=== PATIENT | male | born 1935 | race Caucasian/White ===

== ENCOUNTER 2021-01-05 20:49 | Inpatient (IN) ==
[2021-01-08] MEDS: Apixaban 5 MG TABLET PO SCH (22:24)
[2021-01-08] MEDS: *HR* Metformin 500 MG TABLET PO SCH (22:25)
[2021-01-08] MEDS: Magnesium Oxide 400 MG TABLET PO SCH (22:25)
[2021-01-09 07:47] LABS: Basophils % 0.2 %; Eosinophils % 0.3 %; Hematocrit 26.6 % (37.5-50.1); Hemoglobin 8.3 g/dL (12.9-16.9); Immature Granulocytes % 1.3 % (0-4); Lymphocytes # 0.6 K/mcL (0.6-4.6); Lymphocytes % 5.4 %; Mean Corpuscular HGB Conc 31.2 g/dL (31.6-35.5); Mean Platelet Volume 9.6 fL (9.4-12.4); Monocytes # 0.5 K/mcL (0.0-1.3); Monocytes % 4.4 %; Neutrophils # 9.8 K/mcL (1.6-8.9); Platelet Count 314 K/mcL (140-400); Red Blood Count 2.86 M/mcL (4.19-5.50); Red Cell Distribution Width 15.8 % (11.5-14.5); Segmented Neutrophils % 88.4 %
[2021-01-09 08:00] LABS: Calcium 8.2 mg/dL (8.6-10.3); Potassium 3.6 mEq/L (3.5-5.1)
[2021-01-09] MEDS ORDERED: lisinopriL 10 MG TABLET PO SCH (09:00)
[2021-01-09] MEDS: *HR* Glimepiride 2 MG TABLET PO SCH ×2 (09:53→17:29)
[2021-01-09] MEDS: Cyanocobalamin (B-12) 1,000 MCG TABLET PO SCH (09:53)
[2021-01-09] MEDS: Cholecalciferol (D-3) 1,000 UNIT (25MCG) TABLET PO SCH (09:53)
[2021-01-09] MEDS: Aspirin Enteric Coated 81 MG Tablet PO SCH (09:53)
[2021-01-09] MEDS: *HR* Metformin 500 MG TABLET PO SCH (09:54)
[2021-01-09] MEDS: Magnesium Oxide 400 MG TABLET PO SCH ×2 (09:55→20:34)
[2021-01-09] MEDS: Apixaban 5 MG TABLET PO SCH ×2 (09:55→20:34)
[2021-01-09] MEDS: Alogliptin Benzoate [Alogliptin] 12.5 MG PO SCH (09:55)
[2021-01-09] MEDS ORDERED: *HR* Dextrose 50 % in Water (Syg) 50 ML SYRINGE IVP PRN (13:52)
[2021-01-09] MEDS ORDERED: Dextrose Gel 15 GM/37.5 ML TUBE PO PRN ×2 (13:52)
[2021-01-09] MEDS ORDERED: D5% in Water 1,000 ML IVC PRN (13:52)
[2021-01-09] MEDS ORDERED: hydrALAZINE 25 MG TABLET PO PRN (13:58)
[2021-01-09] MEDS: Insulin LISPRO 300 UNITS/3 ML VIAL SUBQ SCH ×2 (17:27→22:06)
[2021-01-09] MEDS ORDERED: Naloxone 0.4 MG/ML INJ IVP ONE (20:07)
[2021-01-09] MEDS: Albumin 25% 25gram/100mL 25 GM/100 ML IV.SOLN IVPB SCH (20:34)
[2021-01-09 20:42] LABS: Hematocrit 24.9 % (37.5-50.1); Hemoglobin 7.8 g/dL (12.9-16.9)
[2021-01-10] MEDS: Albumin 25% 25gram/100mL 25 GM/100 ML IV.SOLN IVPB SCH ×2 (04:31→11:18)
[2021-01-10 07:38] LABS: Albumin 3.6 g/dL (3.5-5.7); Albumin/Globulin Ratio 1.6 (1.1-2.2); Bilirubin,Direct 0.1 mg/dL (0.0-0.2); Bilirubin,Indirect 0.2 mg/dL (0.0-1.0); Bilirubin,Total 0.3 mg/dL (0.3-1.0); Globulin 2.2 g/dL (2.4-3.5); Total Protein 5.8 g/dL (6.4-8.9)
[2021-01-10] MEDS: Aspirin Enteric Coated 81 MG Tablet PO SCH (09:16)
[2021-01-10] MEDS: Cyanocobalamin (B-12) 1,000 MCG TABLET PO SCH (09:17)
[2021-01-10] MEDS: Magnesium Oxide 400 MG TABLET PO SCH ×2 (09:17→20:49)
[2021-01-10] MEDS: Apixaban 5 MG TABLET PO SCH (09:17)
[2021-01-10] MEDS: *HR* Glimepiride 2 MG TABLET PO SCH ×2 (09:17→17:36)
[2021-01-10] MEDS: Cholecalciferol (D-3) 1,000 UNIT (25MCG) TABLET PO SCH (09:17)
[2021-01-10] MEDS: Alogliptin Benzoate [Alogliptin] 12.5 MG PO SCH (09:18)
[2021-01-10] MEDS: Insulin LISPRO 300 UNITS/3 ML VIAL SUBQ SCH ×4 (09:18→20:49)
[2021-01-10] MEDS ORDERED: 0.9 % Sodium Chloride 250 ML IVC ONE ×2 (10:00→11:12)
[2021-01-10] MEDS ORDERED: 0.9 % Sodium Chloride 1,000 ML IVC SCH (10:15)
[2021-01-10] MEDS ORDERED: 0.9 % Sodium Chloride 250 ML ONE (11:20)
[2021-01-10 15:20] LABS: Basophils % 0.2 %; Eosinophils # 0.1 K/mcL (0.0-0.6); Eosinophils % 1.1 %; Hematocrit 20.5 % (37.5-50.1); Hemoglobin 6.5 g/dL (12.9-16.9); Immature Granulocytes % 0.9 % (0-4); Lymphocytes # 0.6 K/mcL (0.6-4.6); Lymphocytes % 6.9 %; Mean Corpuscular HGB Conc 31.7 g/dL (31.6-35.5); Mean Corpuscular Hemoglobin 29.5 pg (28.0-33.3); Mean Corpuscular Volume 93.2 fL (83.0-100.0); Mean Platelet Volume 9.7 fL (9.4-12.4); Monocytes # 0.4 K/mcL (0.0-1.3); Monocytes % 5.1 %; Neutrophils # 6.9 K/mcL (1.6-8.9); Platelet Count 249 K/mcL (140-400); Red Cell Distribution Width 15.9 % (11.5-14.5); Segmented Neutrophils % 85.8 %; White Blood Count 8.1 K/mcL (4.3-11.1)
[2021-01-10] MEDS ORDERED: 0.9 % Sodium Chloride 250 ML IVC SCH (16:15)
[2021-01-10] MEDS ORDERED: Albumin 25% 25gram/100mL 25 GM/100 ML IV.SOLN IVPB ONE (20:00)
[2021-01-10 21:48] LABS: Hematocrit 20.9 % (37.5-50.1); Hemoglobin 6.7 g/dL (12.9-16.9)
[2021-01-11 07:05] LABS: Hematocrit 26.5 % (37.5-50.1); Hemoglobin 8.6 g/dL (12.9-16.9)
[2021-01-11 07:34] LABS: Calcium 8.5 mg/dL (8.6-10.3); Potassium 3.6 mEq/L (3.5-5.1)
[2021-01-11] MEDS: Magnesium Oxide 400 MG TABLET PO SCH ×2 (09:38→20:56)
[2021-01-11] MEDS: *HR* Glimepiride 2 MG TABLET PO SCH ×2 (09:38→16:36)
[2021-01-11] MEDS: Cholecalciferol (D-3) 1,000 UNIT (25MCG) TABLET PO SCH (09:38)
[2021-01-11] MEDS: Cyanocobalamin (B-12) 1,000 MCG TABLET PO SCH (09:38)
[2021-01-11] MEDS: Insulin LISPRO 300 UNITS/3 ML VIAL SUBQ SCH ×4 (09:39→20:40)
[2021-01-11] MEDS: Aspirin Enteric Coated 81 MG Tablet PO SCH (09:39)
[2021-01-11] MEDS: Alogliptin Benzoate [Alogliptin] 12.5 MG PO SCH (09:39)
[2021-01-11 11:45] LABS: Hemoglobin 8.8 g/dL (12.9-16.9)
[2021-01-11 14:31] LABS: Hematocrit 27.6 % (37.5-50.1); Hemoglobin 8.9 g/dL (12.9-16.9)
[2021-01-11 20:10] LABS: Hematocrit 28.5 % (37.5-50.1); Hemoglobin 9.1 g/dL (12.9-16.9)
[2021-01-12 02:00] LABS: Hematocrit 28.9 % (37.5-50.1); Hemoglobin 9.3 g/dL (12.9-16.9)
[2021-01-12 08:14] LABS: Hematocrit 30.2 % (37.5-50.1); Hemoglobin 9.6 g/dL (12.9-16.9)
[2021-01-12] MEDS: Insulin LISPRO 300 UNITS/3 ML VIAL SUBQ SCH ×4 (09:44→20:46)
[2021-01-12] MEDS: Aspirin Enteric Coated 81 MG Tablet PO SCH (09:53)
[2021-01-12] MEDS: Cholecalciferol (D-3) 1,000 UNIT (25MCG) TABLET PO SCH (09:54)
[2021-01-12] MEDS: Magnesium Oxide 400 MG TABLET PO SCH ×2 (09:54→20:53)
[2021-01-12] MEDS: Cyanocobalamin (B-12) 1,000 MCG TABLET PO SCH (09:55)
[2021-01-12] MEDS: *HR* Glimepiride 2 MG TABLET PO SCH ×2 (09:57→17:13)
[2021-01-12] MEDS: Alogliptin Benzoate [Alogliptin] 12.5 MG PO SCH (10:20)
[2021-01-13 08:22] LABS: Basophils % 0.5 %; Eosinophils # 0.1 K/mcL (0.0-0.6); Eosinophils % 1.9 %; Hematocrit 30.4 % (37.5-50.1); Hemoglobin 9.7 g/dL (12.9-16.9); Immature Granulocytes % 0.9 % (0-4); Lymphocytes # 0.8 K/mcL (0.6-4.6); Lymphocytes % 13.4 %; Mean Corpuscular HGB Conc 31.9 g/dL (31.6-35.5); Mean Corpuscular Hemoglobin 28.7 pg (28.0-33.3); Mean Corpuscular Volume 89.9 fL (83.0-100.0); Mean Platelet Volume 9.2 fL (9.4-12.4); Monocytes # 0.5 K/mcL (0.0-1.3); Monocytes % 7.7 %; Neutrophils # 4.4 K/mcL (1.6-8.9); Platelet Count 216 K/mcL (140-400); Red Blood Count 3.38 M/mcL (4.19-5.50); Red Cell Distribution Width 15.8 % (11.5-14.5); Segmented Neutrophils % 75.6 %; White Blood Count 5.8 K/mcL (4.3-11.1)
[2021-01-13 08:39] LABS: BUN/Creatinine Ratio 20 (6-26); Blood Urea Nitrogen 27 mg/dL (8-23); Calcium 8.8 mg/dL (8.6-10.3); Carbon Dioxide 30 mEq/L (23-29); Chloride 99 mEq/L (98-107); Glucose 145 mg/dL (70-105); Osmolality,Calculated 286 (280-300); Potassium 3.8 mEq/L (3.5-5.1); Sodium 134 mEq/L (136-145); eGFR For African Americans > 60 (> 60); eGFR For Non-African Americans 51 (> 60)
[2021-01-13] MEDS: Insulin LISPRO 300 UNITS/3 ML VIAL SUBQ SCH ×4 (09:05→21:28)
[2021-01-13] MEDS: Alogliptin Benzoate [Alogliptin] 12.5 MG PO SCH (09:06)
[2021-01-13] MEDS: Cholecalciferol (D-3) 1,000 UNIT (25MCG) TABLET PO SCH (09:13)
[2021-01-13] MEDS: Aspirin Enteric Coated 81 MG Tablet PO SCH (09:14)
[2021-01-13] MEDS: Cyanocobalamin (B-12) 1,000 MCG TABLET PO SCH (09:14)
[2021-01-13] MEDS: Magnesium Oxide 400 MG TABLET PO SCH ×2 (09:15→21:27)
[2021-01-13] MEDS: *HR* Glimepiride 2 MG TABLET PO SCH ×2 (09:15→16:53)
[2021-01-14] MEDS: Cholecalciferol (D-3) 1,000 UNIT (25MCG) TABLET PO SCH (09:20)
[2021-01-14] MEDS: Aspirin Enteric Coated 81 MG Tablet PO SCH (09:20)
[2021-01-14] MEDS: *HR* Glimepiride 2 MG TABLET PO SCH ×2 (09:20→17:51)
[2021-01-14] MEDS: Magnesium Oxide 400 MG TABLET PO SCH ×2 (09:21→19:58)
[2021-01-14] MEDS: Insulin LISPRO 300 UNITS/3 ML VIAL SUBQ SCH ×4 (09:21→19:51)
[2021-01-14] MEDS: Cyanocobalamin (B-12) 1,000 MCG TABLET PO SCH (09:21)
[2021-01-14] MEDS: Alogliptin Benzoate [Alogliptin] 12.5 MG PO SCH (09:22)
[2021-01-15 07:26] LABS: Basophils # 0.1 K/mcL (0.0-0.2); Basophils % 0.9 %; Eosinophils # 0.2 K/mcL (0.0-0.6); Eosinophils % 2.6 %; Hematocrit 32.9 % (37.5-50.1); Hemoglobin 10.2 g/dL (12.9-16.9); Lymphocytes # 1.1 K/mcL (0.6-4.6); Mean Corpuscular Hemoglobin 28.3 pg (28.0-33.3); Mean Corpuscular Volume 91.1 fL (83.0-100.0); Mean Platelet Volume 9.2 fL (9.4-12.4); Monocytes # 0.6 K/mcL (0.0-1.3); Monocytes % 10.1 %; Neutrophils # 3.9 K/mcL (1.6-8.9); Platelet Count 230 K/mcL (140-400); Red Blood Count 3.61 M/mcL (4.19-5.50); Red Cell Distribution Width 15.4 % (11.5-14.5); Segmented Neutrophils % 67.4 %; White Blood Count 5.8 K/mcL (4.3-11.1)
[2021-01-15 07:49] LABS: Potassium 4.2 mEq/L (3.5-5.1)
[2021-01-15] MEDS: Insulin LISPRO 300 UNITS/3 ML VIAL SUBQ SCH ×4 (10:42→22:09)
[2021-01-15] MEDS: Magnesium Oxide 400 MG TABLET PO SCH ×2 (10:42→22:09)
[2021-01-15] MEDS: Cyanocobalamin (B-12) 1,000 MCG TABLET PO SCH (10:42)
[2021-01-15] MEDS: *HR* Glimepiride 2 MG TABLET PO SCH ×2 (10:42→17:14)
[2021-01-15] MEDS: Aspirin Enteric Coated 81 MG Tablet PO SCH (10:43)
[2021-01-15] MEDS: Cholecalciferol (D-3) 1,000 UNIT (25MCG) TABLET PO SCH (10:43)
[2021-01-15] MEDS: Alogliptin Benzoate [Alogliptin] 12.5 MG PO SCH (10:43)
[2021-01-15] MEDS ORDERED: 0.9 % Sodium Chloride 1,000 ML IVC SCH (13:15)
[2021-01-16 09:31] LABS: BUN/Creatinine Ratio 19 (6-26); Blood Urea Nitrogen 24 mg/dL (8-23); Calcium 8.7 mg/dL (8.6-10.3); Carbon Dioxide 29 mEq/L (23-29); Chloride 99 mEq/L (98-107); Glucose 157 mg/dL (70-105); Osmolality,Calculated 289 (280-300); Potassium 4.2 mEq/L (3.5-5.1); Sodium 136 mEq/L (136-145); eGFR For African Americans > 60 (> 60); eGFR For Non-African Americans 55 (> 60)
[2021-01-16] MEDS: Insulin LISPRO 300 UNITS/3 ML VIAL SUBQ SCH ×4 (09:56→20:44)
[2021-01-16] MEDS: Aspirin Enteric Coated 81 MG Tablet PO SCH (09:57)
[2021-01-16] MEDS: Cholecalciferol (D-3) 1,000 UNIT (25MCG) TABLET PO SCH (09:57)
[2021-01-16] MEDS: Cyanocobalamin (B-12) 1,000 MCG TABLET PO SCH (09:58)
[2021-01-16] MEDS: Magnesium Oxide 400 MG TABLET PO SCH ×2 (09:58→20:46)
[2021-01-16] MEDS: *HR* Glimepiride 2 MG TABLET PO SCH ×2 (09:59→17:12)
[2021-01-16] MEDS: Alogliptin Benzoate [Alogliptin] 12.5 MG PO SCH (09:59)
[2021-01-17] MEDS: Insulin LISPRO 300 UNITS/3 ML VIAL SUBQ SCH ×4 (08:49→20:33)
[2021-01-17] MEDS: Aspirin Enteric Coated 81 MG Tablet PO SCH (08:54)
[2021-01-17] MEDS: Magnesium Oxide 400 MG TABLET PO SCH ×2 (08:55→20:32)
[2021-01-17] MEDS: Cholecalciferol (D-3) 1,000 UNIT (25MCG) TABLET PO SCH (08:55)
[2021-01-17] MEDS: *HR* Glimepiride 2 MG TABLET PO SCH ×2 (08:55→17:01)
[2021-01-17] MEDS: Cyanocobalamin (B-12) 1,000 MCG TABLET PO SCH (08:55)
[2021-01-17] MEDS: Alogliptin Benzoate [Alogliptin] 12.5 MG PO SCH (09:45)
[2021-01-17] MEDS: Apixaban 5 MG TABLET PO SCH (20:32)
[2021-01-18] MEDS: Apixaban 5 MG TABLET PO SCH ×2 (08:22→20:07)
[2021-01-18] MEDS: Aspirin Enteric Coated 81 MG Tablet PO SCH (08:23)
[2021-01-18] MEDS: Magnesium Oxide 400 MG TABLET PO SCH ×2 (08:23→20:08)
[2021-01-18] MEDS: *HR* Glimepiride 2 MG TABLET PO SCH ×2 (08:24→16:55)
[2021-01-18] MEDS: Cyanocobalamin (B-12) 1,000 MCG TABLET PO SCH (08:24)
[2021-01-18] MEDS: Cholecalciferol (D-3) 1,000 UNIT (25MCG) TABLET PO SCH (08:24)
[2021-01-18] MEDS: Insulin LISPRO 300 UNITS/3 ML VIAL SUBQ SCH ×4 (08:25→20:08)
[2021-01-18] MEDS: Alogliptin Benzoate [Alogliptin] 12.5 MG PO SCH (10:07)
[2021-01-19] MEDS: Apixaban 5 MG TABLET PO SCH ×2 (07:50→20:47)
[2021-01-19] MEDS: Aspirin Enteric Coated 81 MG Tablet PO SCH (07:50)
[2021-01-19] MEDS: Cyanocobalamin (B-12) 1,000 MCG TABLET PO SCH (07:51)
[2021-01-19] MEDS: *HR* Glimepiride 2 MG TABLET PO SCH ×2 (07:52→16:39)
[2021-01-19] MEDS: Cholecalciferol (D-3) 1,000 UNIT (25MCG) TABLET PO SCH (07:52)
[2021-01-19] MEDS: Magnesium Oxide 400 MG TABLET PO SCH ×2 (07:53→20:47)
[2021-01-19] MEDS: Insulin LISPRO 300 UNITS/3 ML VIAL SUBQ SCH ×4 (07:54→20:48)
[2021-01-19] MEDS: Alogliptin Benzoate [Alogliptin] 12.5 MG PO SCH (07:56)
[2021-01-20] MEDS: Alogliptin Benzoate [Alogliptin] 12.5 MG PO SCH (08:48)
[2021-01-20] MEDS: Insulin LISPRO 300 UNITS/3 ML VIAL SUBQ SCH ×4 (08:48→20:47)
[2021-01-20] MEDS: Apixaban 5 MG TABLET PO SCH ×2 (08:57→20:41)
[2021-01-20] MEDS: Cholecalciferol (D-3) 1,000 UNIT (25MCG) TABLET PO SCH (08:57)
[2021-01-20] MEDS: Aspirin Enteric Coated 81 MG Tablet PO SCH (08:57)
[2021-01-20] MEDS: *HR* Glimepiride 2 MG TABLET PO SCH ×2 (08:57→16:43)
[2021-01-20] MEDS: Magnesium Oxide 400 MG TABLET PO SCH ×2 (08:57→20:41)
[2021-01-20] MEDS: Cyanocobalamin (B-12) 1,000 MCG TABLET PO SCH (08:57)
[2021-01-21] MEDS: Insulin LISPRO 300 UNITS/3 ML VIAL SUBQ SCH ×4 (07:38→23:57)
[2021-01-21] MEDS: Cyanocobalamin (B-12) 1,000 MCG TABLET PO SCH (09:39)
[2021-01-21] MEDS: Magnesium Oxide 400 MG TABLET PO SCH ×2 (09:39→19:59)
[2021-01-21] MEDS: Apixaban 5 MG TABLET PO SCH ×2 (09:39→19:58)
[2021-01-21] MEDS: Aspirin Enteric Coated 81 MG Tablet PO SCH (09:39)
[2021-01-21] MEDS: *HR* Glimepiride 2 MG TABLET PO SCH ×2 (09:39→17:05)
[2021-01-21] MEDS: Alogliptin Benzoate [Alogliptin] 12.5 MG PO SCH (09:40)
[2021-01-21] MEDS: Cholecalciferol (D-3) 1,000 UNIT (25MCG) TABLET PO SCH (09:40)
[2021-01-22] MEDS: Magnesium Oxide 400 MG TABLET PO SCH ×2 (08:22→20:26)
[2021-01-22] MEDS: Aspirin Enteric Coated 81 MG Tablet PO SCH (08:22)
[2021-01-22] MEDS: Apixaban 5 MG TABLET PO SCH ×2 (08:22→20:25)
[2021-01-22] MEDS: *HR* Glimepiride 2 MG TABLET PO SCH ×2 (08:23→17:00)
[2021-01-22] MEDS: Cyanocobalamin (B-12) 1,000 MCG TABLET PO SCH (08:23)
[2021-01-22] MEDS: Alogliptin Benzoate [Alogliptin] 12.5 MG PO SCH (08:23)
[2021-01-22] MEDS: Cholecalciferol (D-3) 1,000 UNIT (25MCG) TABLET PO SCH (08:23)
[2021-01-22] MEDS: Insulin LISPRO 300 UNITS/3 ML VIAL SUBQ SCH ×4 (08:36→22:52)
[2021-01-23] MEDS: *HR* Glimepiride 2 MG TABLET PO SCH ×2 (08:55→17:06)
[2021-01-23] MEDS: Cholecalciferol (D-3) 1,000 UNIT (25MCG) TABLET PO SCH (08:56)
[2021-01-23] MEDS: Aspirin Enteric Coated 81 MG Tablet PO SCH (08:56)
[2021-01-23] MEDS: Magnesium Oxide 400 MG TABLET PO SCH ×2 (08:57→21:19)
[2021-01-23] MEDS: Cyanocobalamin (B-12) 1,000 MCG TABLET PO SCH (08:57)
[2021-01-23] MEDS: Apixaban 5 MG TABLET PO SCH ×3 (08:57→21:21)
[2021-01-23] MEDS: Insulin LISPRO 300 UNITS/3 ML VIAL SUBQ SCH ×4 (08:59→21:21)
[2021-01-23] MEDS: Alogliptin Benzoate [Alogliptin] 12.5 MG PO SCH (09:01)
[2021-01-24 07:55] LABS: Basophils # 0.1 K/mcL (0.0-0.2); Basophils % 0.8 %; Eosinophils # 0.1 K/mcL (0.0-0.6); Eosinophils % 0.7 %; Hematocrit 37.9 % (37.5-50.1); Hemoglobin 11.6 g/dL (12.9-16.9); Immature Granulocytes % 1.2 % (0-4); Lymphocytes # 1.4 K/mcL (0.6-4.6); Lymphocytes % 18.9 %; Mean Corpuscular HGB Conc 30.6 g/dL (31.6-35.5); Mean Corpuscular Hemoglobin 27.7 pg (28.0-33.3); Mean Corpuscular Volume 90.5 fL (83.0-100.0); Mean Platelet Volume 9.5 fL (9.4-12.4); Monocytes # 0.6 K/mcL (0.0-1.3); Monocytes % 7.7 %; Neutrophils # 5.3 K/mcL (1.6-8.9); Platelet Count 273 K/mcL (140-400); Red Blood Count 4.19 M/mcL (4.19-5.50); Red Cell Distribution Width 15.5 % (11.5-14.5); Segmented Neutrophils % 70.7 %; White Blood Count 7.5 K/mcL (4.3-11.1)
[2021-01-24 08:07] LABS: Calcium 9.7 mg/dL (8.6-10.3); Potassium 4.4 mEq/L (3.5-5.1)
[2021-01-24] MEDS: Cholecalciferol (D-3) 1,000 UNIT (25MCG) TABLET PO SCH (09:51)
[2021-01-24] MEDS: Aspirin Enteric Coated 81 MG Tablet PO SCH (09:51)
[2021-01-24] MEDS: Magnesium Oxide 400 MG TABLET PO SCH ×2 (09:52→22:09)
[2021-01-24] MEDS: Apixaban 5 MG TABLET PO SCH ×2 (09:53→22:09)
[2021-01-24] MEDS: Cyanocobalamin (B-12) 1,000 MCG TABLET PO SCH (09:54)
[2021-01-24] MEDS: *HR* Glimepiride 2 MG TABLET PO SCH ×2 (09:55→17:08)
[2021-01-24] MEDS: Insulin LISPRO 300 UNITS/3 ML VIAL SUBQ SCH ×4 (10:00→22:05)
[2021-01-24] MEDS: Alogliptin Benzoate [Alogliptin] 12.5 MG PO SCH (10:01)
[2021-01-24] MEDS ORDERED: Sennosides/Docusate Sodium TABLET PO ONE (13:59)
[2021-01-25] MEDS: Insulin LISPRO 300 UNITS/3 ML VIAL SUBQ SCH ×4 (07:45→21:10)
[2021-01-25] MEDS: *HR* Glimepiride 2 MG TABLET PO SCH ×2 (08:46→16:36)
[2021-01-25] MEDS: Alogliptin Benzoate [Alogliptin] 12.5 MG PO SCH (08:47)
[2021-01-25] MEDS: Cyanocobalamin (B-12) 1,000 MCG TABLET PO SCH (08:47)
[2021-01-25] MEDS: Apixaban 5 MG TABLET PO SCH ×2 (08:47→21:10)
[2021-01-25] MEDS: Aspirin Enteric Coated 81 MG Tablet PO SCH (08:48)
[2021-01-25] MEDS: Magnesium Oxide 400 MG TABLET PO SCH ×2 (08:48→21:10)
[2021-01-25] MEDS: Cholecalciferol (D-3) 1,000 UNIT (25MCG) TABLET PO SCH (09:47)
[2021-01-25] MEDS: cephALEXin 250 MG CAPSULE PO SCH ×3 (12:12→21:09)
[2021-01-26 07:29] VITALS: BP 127/83; PULSE 70; RESP 16; TEMP 97.4; O2SAT 95
[2021-01-26] MEDS: Insulin LISPRO 300 UNITS/3 ML VIAL SUBQ SCH ×2 (07:51→12:40)
[2021-01-26] MEDS: Cyanocobalamin (B-12) 1,000 MCG TABLET PO SCH (09:17)
[2021-01-26] MEDS: Aspirin Enteric Coated 81 MG Tablet PO SCH (09:17)
[2021-01-26] MEDS: cephALEXin 250 MG CAPSULE PO SCH ×2 (09:17→14:43)
[2021-01-26] MEDS: Alogliptin Benzoate [Alogliptin] 12.5 MG PO SCH (09:18)
[2021-01-26] MEDS: *HR* Glimepiride 2 MG TABLET PO SCH (09:18)
[2021-01-26] MEDS: Cholecalciferol (D-3) 1,000 UNIT (25MCG) TABLET PO SCH (09:18)
[2021-01-26] MEDS: Magnesium Oxide 400 MG TABLET PO SCH (09:18)
[2021-01-26 11:43] LABS: Hemoglobin 12.2 g/dL (12.9-16.9)
== END 2021-01-26 17:38 | disposition home health service (06) | DRG 180 ==
LOC: INPPIK 01-08 21:38
PROVIDERS: ADMIT Family Medicine; ATTEND Family Medicine

== ENCOUNTER 2021-01-26 13:45 | Observation (INO) ==
[2021-01-26] MEDS ORDERED: Acetaminophen 325 MG TABLET PO PRN (15:03)
[2021-01-26] MEDS ORDERED: Ondansetron ODT 4 MG TAB.RAPDIS SL PRN (15:03)
[2021-01-26] MEDS ORDERED: Naloxone 0.4 MG/ML INJ IVP PRN (15:03)
[2021-01-26] MEDS ORDERED: Dextrose Gel 15 GM/37.5 ML TUBE PO PRN ×2 (15:07)
[2021-01-26] MEDS ORDERED: D5% in Water 1,000 ML IVC PRN (15:07)
[2021-01-26] MEDS ORDERED: *HR* Dextrose 50 % in Water (Syg) 50 ML SYRINGE IVP PRN (15:07)
[2021-01-26 18:33] LABS: Hematocrit 35.6 % (37.5-50.1); Hemoglobin 10.9 g/dL (12.9-16.9)
[2021-01-26] MEDS: Insulin LISPRO 300 UNITS/3 ML VIAL SUBQ SCH ×2 (22:08→22:31)
[2021-01-26] MEDS: Magnesium Oxide 400 MG TABLET PO SCH (22:32)
[2021-01-26] MEDS: cephALEXin 250 MG CAPSULE PO SCH (22:32)
[2021-01-27 06:14] LABS: Hematocrit 36.6 % (37.5-50.1); Hemoglobin 10.9 g/dL (12.9-16.9)
[2021-01-27] MEDS: Insulin LISPRO 300 UNITS/3 ML VIAL SUBQ SCH ×4 (08:15→21:54)
[2021-01-27] MEDS: Cyanocobalamin (B-12) 1,000 MCG TABLET PO SCH (08:25)
[2021-01-27] MEDS: cephALEXin 250 MG CAPSULE PO SCH ×3 (08:25→21:53)
[2021-01-27] MEDS: Cholecalciferol (D-3) 1,000 UNIT (25MCG) TABLET PO SCH (08:25)
[2021-01-27] MEDS: *HR* Glimepiride 2 MG TABLET PO SCH ×2 (08:25→15:44)
[2021-01-27] MEDS: Aspirin Enteric Coated 81 MG Tablet PO SCH (08:25)
[2021-01-27] MEDS: Magnesium Oxide 400 MG TABLET PO SCH ×2 (08:25→21:53)
[2021-01-27] MEDS: ALOGLIPTIN BENZOATE 12.5 MG PO SCH (08:26)
[2021-01-27 17:12] LABS: Hematocrit 33.2 % (37.5-50.1); Hemoglobin 10.5 g/dL (12.9-16.9)
[2021-01-28 07:24] LABS: Hematocrit 34.8 % (37.5-50.1); Hemoglobin 10.6 g/dL (12.9-16.9)
[2021-01-28] MEDS: Magnesium Oxide 400 MG TABLET PO SCH (08:00)
[2021-01-28] MEDS: Aspirin Enteric Coated 81 MG Tablet PO SCH (08:00)
[2021-01-28] MEDS: Cyanocobalamin (B-12) 1,000 MCG TABLET PO SCH (08:01)
[2021-01-28] MEDS: Cholecalciferol (D-3) 1,000 UNIT (25MCG) TABLET PO SCH (08:01)
[2021-01-28] MEDS: cephALEXin 250 MG CAPSULE PO SCH (08:01)
[2021-01-28] MEDS: *HR* Glimepiride 2 MG TABLET PO SCH (08:01)
[2021-01-28] MEDS: Insulin LISPRO 300 UNITS/3 ML VIAL SUBQ SCH ×2 (08:02→13:42)
[2021-01-28] MEDS: ALOGLIPTIN BENZOATE 12.5 MG PO SCH (08:02)
[2021-01-28 21:02] VITALS: BP 113/55; PULSE 118; RESP 14; TEMP 98.2; O2SAT 97
== END 2021-01-28 13:59 | disposition home health service (06) ==
LOC: INPPIK
PROVIDERS: ADMIT Family Medicine; ATTEND Family Medicine